=== PATIENT | male | born 2000 | race African-American/Black ===

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

== ENCOUNTER 2021-03-10 03:01 | Emergency (ER) | payer OTHER ==
[~2021-03-10] VITALS: Ht 180.3 cm; Wt 62.1 kg
[~2021-03-10 03:01] MED LIST: ATIVAN0.5 M1 PO
[2021-03-10] MEDS ORDERED: ABILIFY10 MG PO (03:12)
[2021-03-10] MEDS ORDERED: AUGMENTIN 875-1 EACH PO (05:15)
[2021-03-10] MEDS ORDERED: TRIMETHOPRIM /P10 M1 OPHTHALMIC (05:15)
[2021-03-10 05:25] VITALS: BP 130/67
== END 2021-03-10 05:26 | disposition home or self-care (01) ==
LOC: ER 03:01
DX: S51.852A Open bite of left forearm, initial encounter (principal); S51.851A Open bite of right forearm, initial encounter; S01.85XA Open bite of other part of head, initial encounter; S05.02XA Injury of conjunctiva and corneal abrasion without foreign body, left eye, initial encounter; S05.01XA Injury of conjunctiva and corneal abrasion without foreign body, right eye, initial encounter; Z79.899 Other long term (current) drug therapy; Y04.1XXA Assault by human bite, initial encounter; Y93.89 Activity, other specified; Y92.89 Other specified places as the place of occurrence of the external cause; Y99.9 Unspecified external cause status